=== PATIENT | female | born 1995 | race Caucasian/White ===

== ENCOUNTER 2017-04-03 02:17 | Emergency (ER) | payer OTHER ==
[2017-04-03 02:24] VITALS: BP 117/86; PULSE 64; RESP 16; TEMP 98.1; O2SAT 97
--- NOTE | 2017-04-03 02:27 | EDPHY ---
H & P HPI/ROS: HPI CHIEF COMPLAINT: Alcohol Intoxication HISTORY OF PRESENT ILLNESS: This patient very pleasant 21-year-old female, she presents emergency room by EMS after friends called 911 as she was vomiting and seemed unresponsive after drinking shots of Tequila. Patient reports to me that she had 6 shots of Tequila. The last thing she remembers was vomiting over toilet. When EMS arrived they evaluated her. She seemed very somnolent. She was brought to the emergency room upon arrival here she is wide awake. She is clinically sober. She is stable gait. No ataxia. She is not vomiting. Her breath alcohol is 144. Past Medical History: No significant medical history Past Surgical History: No significant surgical history Social History: [employer] student, drank alcohol this evening, denies tobacco illicit drugs. Family History: Noncontributory ROS REVIEW OF SYSTEMS: A comprehensive 10 point review of systems is otherwise negative aside from elements mentioned in the history of present illness. Exam Constitutional triage nursing summary reviewed, vital signs reviewed, Eyes normal conjunctivae and sclera, horizontal beating nystagmus consistent acute alcohol intoxication, otherwise pupils equal and react to light HENT normal inspection, atraumatic, moist mucus membranes, no epistaxis, neck supple/ no meningismus, no raccoon eyes. Respiratory clear to auscultation bilaterally, normal breath sounds, no respiratory distress, no wheezing. Cardiovascular rate normal, regular rhythm, no murmur, no edema, distal pulses normal. Gastrointestinal soft, non-tender, no rebound, no guarding, normal bowel sounds, no distension, no pulsatile mass. Genitourinary no CVA tenderness. Musculoskeletal no midline vertebral tenderness, full range of motion, no calf swelling, no tenderness of extremities, no meningismus, good pulses, neurovascularly intact. Skin pink, warm, & dry, no rash, skin atraumatic. Neurologic alert and oriented x 3, AAOx3, moves all 4 extremities equally, motor intact, sensory intact, CN II-XII intact, , normal vision, normal speech. Psychiatric normal mood/affect. No ataxia. Stable gait. Heme/Lymph/Immune no lymphadenopathy. Differential Diagnosis: Includes but is not limited to in a particular order acute alcohol intoxication, alcohol abuse, dehydration, electrolyte abnormality , nausea vomiting from acute alcohol intoxication Medical Decision Making: Plan for this patient she ambulated well throughout the emergency room she is clinically sober. Re-evaluation: 0226AM: Clinically sober. No ataxia stable gait. Safe for discharge. Source: Patient, EMS Allergies/Adverse Reactions: No Known Allergies Allergy (Unverified 04/03/17 02:22) Home Medications: Medication Instructions Recorded NK [No Known Home Meds] 04/03/17 Departure - Departure Disposition: Home, Routine, Self-Care Clinical Impression: Alcoholic intoxication Qualifiers: Complication of substance-induced condition: uncomplicated Qualified Code(s): F10.920 - Alcohol use, unspecified with intoxication, uncomplicated Condition: Good Instructions: Alcohol Intoxication (ED) Referrals: Patient,NotPresent [Primary Care Provider] - As per Instructions
== END 2017-04-03 02:38 | disposition home or self-care (01) ==
LOC: EDBD 02:17
DX: F10.920 Alcohol use, unspecified with intoxication, uncomplicated (principal)